=== PATIENT | female | born 1930 | race Caucasian/White ===

== ENCOUNTER 2016-09-16 16:42 | Inpatient (IN) | payer MEDICARE, OTHER ==
--- NOTE | ~2016-09-16 | CN ---
Consultation Report [facility] [address] [place]. [address] NAME: MARIELA HIGHTOWER : 34 STATUS : ADM IN [facility]#: [id number] AGE: 86 ADM/REG DATE : 09/16/16 MR#: [id number] REPORT SERV DATE: 09/17/16 DICTATED BY: FELIX SOLER DATE: 09/17/16 REPORT STATUS : Draft TRANSCRIBED BY: MODL DATE: 09/17/16 CONSULTATION DATE OF CONSULTATION: CHIEF COMPLAINT: Right shoulder pain. HISTORY OF PRESENT ILLNESS: This is an 86-year-old female, who is admitted to the hospitalist service with a mechanical fall and right upper extremity pain. She has a medical history of coronary artery disease, under the care of Dr. Gordon. She lives alone and is in reasonably good health, in her normal status. She has also had some dysuria recently. We are consulted to evaluate and treat the right upper extremity fracture. MEDICAL HISTORY: Significant for coronary artery disease with stent, hyperlipidemia. She is on oxygen. SURGICAL HISTORY: Gallbladder and stent. FAMILY HISTORY: Heart disease. SOCIAL HISTORY: Xibjf-pyqw-rqxd history. No alcohol or drug use. She lives alone. ALLERGIES: PENICILLIN. MEDICATIONS: Aspirin, atorvastatin, Plavix, Pepcid, Lasix, Prinivil. PHYSICAL EXAMINATION: VITAL SIGNS: She is afebrile. Vital signs are stable. GENERAL: She is in no acute distress. Pleasant, cooperative, alert and oriented x3. HEENT: Normocephalic, atraumatic. Extraocular movements are intact. No scleral icterus. NECK: Supple. Nontender. No JVD. Trach is midline. CHEST: Clear. CARDIOVASCULAR: Regular rate and rhythm. ABDOMEN: Soft, nontender. SKIN: Warm and dry. NEUROLOGICAL: There is no focal deficit. Cranial nerves 2 to 12 are intact. Hips, knees, and ankles have full range of motion without pain. Pulses are symmetric. No axillary or inguinal lymphadenopathy. Right upper extremity is in a sling. She has intact axillary sensory and motor function as well as radial median ulnar nerve function, distally 2+ radial pulse. LABS: White count 7.5, H and H of 11 and 36, platelets 99. Electrolytes, sodium 140, BUN and creatinine 26 and 1.5. Humerus x-ray demonstrates a nondisplaced surgical neck with good alignment and minimal mild comminution, 1-2 mm displacement. Consultation Report [facility] [address] [facility] [address] NAME: MARIELA HIGHTOWER : 32 STATUS : ADM IN [facility]#: [id number] AGE: 86 ADM/REG DATE : 09/16/16 MR#: [id number] REPORT SERV DATE: 09/17/16 DICTATED BY: FELIX SOLER DATE: 09/17/16 REPORT STATUS : Draft TRANSCRIBED BY: ALBERTO DATE: 09/17/16 ASSESSMENT: Nonoperative surgical neck fracture. PLAN: Nonoperative treatment, sling for four to six weeks. Elbow range of motion, pendulums only. We will check her back in two weeks to assess displacement in the office. Placement home versus home with home health PT versus rehab. CINDY/TYLERL Felix Soler M.D. / [id number] CC: MD Matias Rodriguez M.D.
--- NOTE | ~2016-09-16 | DS ---
Discharge Summary [facility] [id number] [place]. [address] NAME: MARIELA HIGHTOWER : 32 STATUS : DIS IN PAT#: [id number] AGE: 86 ADM/REG DATE : 09/16/16 MR#: [id number] REPORT SERV DATE: 09/21/16 DICTATED BY: Esha JIMÉNEZ DATE: 09/20/16 REPORT STATUS : Draft TRANSCRIBED BY: MODL DATE: 09/20/16 ADMISSION DATE: 09/16/2016 DISCHARGE DATE: 09/20/2016 CONSULTANTS: Chalino Soler M.D., Orthopedics and Franck Lucero PA-C, Pulmonology. DISCHARGE DIAGNOSES: 1. Right proximal humerus fracture. 2. Right pleural effusion. 3. Thrombocytopenia. 4. Acute kidney injury, on chronic kidney disease. 5. Hypertension. 6. Chronic atrial fibrillation, rate controlled. 7. Urinary tract infection. PROCEDURES: Right thoracentesis on 09/20/2016. IMAGING AND DIAGNOSTICS: 1. 09/17/2016: CT of the chest revealed [id number] right pleural effusion with compressive atelectasis involving the posterior and central right lobe, also additional atelectatic changes in the left lower lobe, right middle lobe, and lingula. No suspicious nodules or masses seen in the aerated portions of the lungs. Moderate upper lobe predominant emphysematous changes in the lungs with right apical fibrosis. Evidence of old granulomatous disease involving the right lung, mediastinal and hilar lymph nodes as well as the spleen. Mild retained secretions in the trachea and left mainstem bronchus. Stable bilateral low-density adrenal nodules compatible with adenomas. There is also a right renal cyst. Stable, recently mildly comminuted fracture of the right humeral head and neck. Atherosclerotic vascular disease as described with [id number] atherosclerotic calcification of the coronary arteries. 2. 09/16/2016: X-ray of the right humerus, acute proximal shaft and humeral head fracture, right side. 3. 09/16/2016: A portable chest x-ray revealed cardiomegaly, generation of a moderate- size pleural effusion, atelectatic changes in the upper medial right lung. Repeat chest x-ray post thoracentesis, persistent right basilar opacification, new left basilar opacification. LABORATORY STUDIES: 1. On 09/20/2016, discharge basic metabolic panel revealed sodium 141, potassium 4.4, chloride 107, CO2 of 26, BUN 18, creatinine 1.27, glucose 90, calcium 8.9, and LDH 123. 2. CBC on 09/20/2016 revealed a white count of 6.1, hemoglobin 11.1, hematocrit 33.6, and platelets 109,000. 3. Culture of the pleural fluid is in progress. Gram stain showed occasional wbc's, no microorganisms. 4. LDH of the thoracentesis fluid is 78, glucose 104, and protein 3.7. 5. On 09/17/2016, urine culture showed approximately 75,000 per mL of urine E coli Discharge Summary [place] [id number] [facility] [place]. [address] NAME: MARIELA HIGHTOWER : 32 STATUS : DIS IN PAT#: [id number] AGE: 86 ADM/REG DATE : 09/16/16 MR#: [id number] REPORT SERV DATE: 09/21/16 DICTATED BY: Esha JIMÉNEZ DATE: 09/20/16 REPORT STATUS : Draft TRANSCRIBED BY: ALBERTO DATE: 09/20/16 organism. HISTORY OF PRESENT ILLNESS: For complete history, please refer to H and P by Dr. Vince Mireles. Briefly, Ms. Hightower is a pleasant 86-year-old female who apparently tripped over a rug at home and was seen and given pain medicines and placed in a sling at the emergency room in [facility] a day before her admission to [facility]. Due to intractable pain, she presented to our emergency room. The Hospitalist Service was consulted for admission. HOSPITAL COURSE: Ms. Hightower was admitted to the orthopedic floor. Her admitting diagnosis was right humeral fracture with acute kidney injury and urinary tract infection. She was given IV fluids, DVT prophylaxis in the form of subcu heparin. CT of the chest was requested secondary to the chest x-ray showing the pleural effusion on the right side. She was placed on Rocephin 1 g IV q.24 hours. On 09/17/2016, she was seen in consultation by Dr. Chalino Soler who recommended no surgical intervention at this point. She was placed in a sling for six weeks and she is to follow up with Dr. Soler as an outpatient in two weeks. I initially saw the patient on 09/18/2016. She was in no acute distress. She did complain of some nausea with poor p.o. intake, however, stated she had not had a bowel movement in at least six days. She was provided with some laxatives and overnight was successful in having a bowel movement. On 09/19/2016, her urine culture came back showing E coli, and she was changed to oral Ceftin after the Rocephin was discontinued. She did complain of some dyspnea with exertion, however, no shortness of breath at rest, and with the results of the CT scan of the chest, Pulmonary was consulted. Her creatinine was improving, and on 09/19/2016, it was down to 1.23. Her MAC inhibitor was held and amlodipine was started on this date. She was seen in consultation by the Alpesh Lucero on 09/19/2016, and he planned for a diagnostic/therapeutic thoracentesis at the bedside on the morning of 09/20/2016. On the morning of 09/20/2016, she had a successful ultrasound-guided thoracentesis with 600 mL of yellow fluid evacuated from the right side. Her postprocedure chest x-ray is as above. When I saw the patient in the afternoon, she was feeling good. States she was breathing much better and hungry and wanted to eat. She denied any shortness of breath and was overall doing well. Her vital signs were stable with a blood pressure of 134/67, heart rate 76, respirations 24, and she is afebrile at 97.4. Her O2 saturation was 99% on 2 L nasal cannula. She does wear nocturnal oxygen at home. We did receive office notes from Dr. Ta, her former director of psychiatry, and atrial fibrillation is chronic for Ms. Hightower, and secondary to the increased risk of bleeding with her history of falls, Dr. Ta recommended dual-antiplatelet therapy with aspirin and Plavix for the patient. So on the afternoon of 09/20/2016, it was determined that it was safe for Ms. Hightower to transfer to [facility] for further rehabilitation. DISCHARGE INSTRUCTIONS: 1. Diet as tolerated. 2. Activity as tolerated with physical therapy and occupational therapy evaluation and treat at the facility. DISCHARGE MEDICATIONS: 1. Aspirin 81 mg p.o. daily. 2. Lipitor 40 mg p.o. daily at bedtime. Discharge Summary [address] [address] NAME: MARIELA HIGHTOWER : 32 STATUS : DIS IN PAT#: [id number] AGE: 86 ADM/REG DATE : 09/16/16 MR#: [id number] REPORT SERV DATE: 09/21/16 DICTATED BY: Esha JIMÉNEZ DATE: 09/20/16 REPORT STATUS : Draft TRANSCRIBED BY: MODL DATE: 09/20/16 3. Plavix 75 mg p.o. daily. 4. Colace 100 mg p.o. b.i.d. 5. Pepcid 20 mg p.o. daily at bedtime. 6. Artificial Tears one drop both eyes p.r.n. 7. Tylenol 650 mg p.o. q.4 hours p.r. p.r.n. 8. Bisacodyl 10 mg suppository p.r.n. 9. Hydrocodone 5/325 one p.o. q.4 hours p.r.n. 10.Zofran 4 mg p.o. every 4 hours. 11.MiraLax one packet p.o. daily p.r.n. constipation. 12.Senokot two tablets p.o. at bedtime p.r.n. 13.Lasix 20 mg p.o. daily. 14.Potassium chloride 20 mEq p.o. daily. 15.Ceftin 250 mg p.o. b.i.d., discontinue after last dose on 09/23/2016. 16.Amlodipine 2.5 mg p.o. daily. 17.DuoNebs q.4 hours while awake. 18.Albuterol nebulizers q.2 hours p.r.n. 19.Dulera two puffs b.i.d. 20.Spiriva one inhalation daily. OTHER DISCHARGE INSTRUCTIONS: Ms. Hightower will follow up with Dr. Ramirez, her inspector and clerk, next week for an office visit as well as a repeat chest x-ray. She will also follow up with her primary care provider after discharge from rehab, and she will follow up with Dr. Chalino Soler in two weeks. DICTATED BY: RYAN Steve-MARIAJOSE DICTATED FOR: Guerita Montague/ALBERTO Adele MartinezjacintodavidsonVAUGHNP- Esha Jiménez M.D. / [id number] CC: Guerita Montague M.D. Michael T Czarnecki, M.D. [facility] Discharge Summary [address] [address] NAME: MARIELA HIGHTOWER : 32 STATUS : DIS IN PAT#: [id number] AGE: 86 ADM/REG DATE : 09/16/16 MR#: [id number] REPORT SERV DATE: 09/21/16 DICTATED BY: Esha JIMÉNEZ DATE: 09/20/16 REPORT STATUS : Draft TRANSCRIBED BY: MODL DATE: 09/20/16 Guerita Valentine NP-C
--- NOTE | ~2016-09-16 | HP ---
History And Physical [facility] [address] [place]. [address] NAME: MARIELA HIGHTOWER : 32 STATUS : ADM IN [facility]#: [id number] AGE: 86 ADM/REG DATE : 09/16/16 MR#: [id number] REPORT SERV DATE: 09/16/16 DICTATED BY: NINOSKA RODRIGUEZ DATE: 09/16/16 REPORT STATUS : Draft TRANSCRIBED BY: MODValdez DATE: 09/16/16 DATE OF ADMISSION: 09/16/2016 CHIEF COMPLAINT: Intractable pain. HISTORY OF PRESENT ILLNESS: The patient is an 86-year-old very pleasant female with past medical history of coronary artery disease with stent placement last year, hyperlipidemia, previously seen Dr. Ta, now currently under the care of Dr. Gordon, who presents after having same-level fall. The patient reports that she tripped over her floor rug and has multiple bruising on right side extremity, particularly on her knees and legs, but subsequently had right humeral fracture, was seen at [facility] yesterday, placed in sling, and sent home with pain medications. The patient attempted conservative therapy; however, the patient reports that she is unable to tolerate pain despite medications, has had difficulty performing ADLs, has not been able to bathe. The patient is actually still in the same clothes as yesterday as she is unable to even change clothes, groom herself, and has not even cooked. The patient also reports that she has had notable burning with urination recently and is looking for help in this time of need. The patient prior to this is fairly functional, active, is able to perform her ADLs without much difficulty. Pain currently is worsened by range of motion and palpation. No current relieving medications techniques despite being on Lortab and Tylenol No. 3. The patient has not had any vomiting, but does have nausea, has had dysuria. No fevers. No diarrhea. No constipation. Symptoms are sharp, moderate severity, constant, nonradiating. Additional 10 point review of systems is negative except for that noted in the HPI. PAST MEDICAL HISTORY: Stent, coronary artery disease, and hyperlipidemia. The patient is unsure if she has COPD or FELA, but she does wear 2 L nocturnal oxygen. PAST SURGICAL HISTORY: Gallbladder and stent. SOCIAL HISTORY: Smoked 40 years, but quit 20 years ago. No alcohol or illicits. FAMILY HISTORY: Heart disease. ALLERGIES: PENICILLIN, WHICH CAUSED A RASH. HOME MEDICATIONS: Tylenol No. 3, Refresh, aspirin, atorvastatin, Plavix, Pepcid, Lasix, V[place], Prinivil, MiraLAX, and Klor-Con. PHYSICAL EXAMINATION: VITAL SIGNS: The patient's blood pressure 100/52, temperature 97.3, pulse 81, respirations 16, and O2 saturations 95% on room air. GENERAL: Mild discomfort, well-developed, well-nourished elderly. EYES: Scleral icterus. EOMI. ENT: Mildly dry mucous membranes. Tongue midline. RESPIRATORY: Clear to auscultation. No wheezes, but does have decreased lung sounds in the right lower lung. History And Physical [address] [address] NAME: MARIELA HIGHTOWER : 32 STATUS : ADM IN [facility]#: [id number] AGE: 86 ADM/REG DATE : 09/16/16 MR#: [id number] REPORT SERV DATE: 09/16/16 DICTATED BY: NINOSKA RODRIGUEZ DATE: 09/16/16 REPORT STATUS : Draft TRANSCRIBED BY: ALBERTO DATE: 09/16/16 CHEST: Equal chest expansion. CARDIOVASCULAR: Regular rate. No rubs. Capillary refill less than 2 seconds, 1:1 beat pulse ratio. No pedal edema. GASTROINTESTINAL: Soft, nontender, nondistended. Bowel sounds positive. GENITOURINARY: Deferred. MUSCULOSKELETAL: Right arm tenderness at shoulder, difficulty with range of motion, in sling. Does have bruising on right lower leg, but able to move without difficulty. SKIN: Warm and dry with bruising throughout body. HEMATOLOGIC: No bleeding. LYMPHATICS: No cervical or supraclavicular lymphadenopathy. NEURO: Alert and oriented. Sensation is still grossly intact. PSYCH: Appropriate mood and affect. LABORATORY DATA: CBC: WBC count 9.2, H and H 12.3 and 37.8, platelets of 137. Sodium 140; potassium 4.6; BUN 26; creatinine 1.64, previously 0.87 in 2012; glucose 122; calcium 9.5; chloride 105; bicarb 29. INR 1.2, PTT 30, pro time 14.6. BNP 279.6. ASSESSMENT AND PLAN: 1. Right humeral fracture. 2. Intractable pain. 3. Hyperlipidemia. 4. Coronary artery disease. 5. Nausea. 6. Questionable obstructive sleep apnea. 7. 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 8. Acute kidney injury. 9. Urinary tract infection. 10.Osteoporosis. PLAN: 1. Plan for right humeral fracture. The patient has been in sling, has tried conservative therapy at home, but is having difficulty performing ADLs, going to the bathroom, grooming self, cooking. Does have osteoporosis history. We will check calcium and vitamin D level, but will need PT and OT and adequate pain control. 2. Intractable pain, IV with p.o. medication bridge. 3. Hyperlipidemia, statin. 4. Coronary artery disease and questionable congestive heart failure history. The patient is not volume overloaded, but does have BNP of 279.6 and right-sided pleural effusion, which the patient reports she has had this in the past and has been drained. She does see Dr. 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 We will try to obtain records from Cardiology and Pulmonology. 5. Nausea p.r.n. 6. FELA and COPD, unclear history. Uses nocturnal oxygen. Will need to obtain records. No signs of acute decompensated COPD. 7. UNIQUE, IV fluids. Gentle with a history of coronary artery disease and mildly elevated BMP. We will also check CPK with recent fall. History And Physical [address] [address] NAME: MARIELA HIGHTOWER : 32 STATUS : ADM IN [facility]#: [id number] AGE: 86 ADM/REG DATE : 09/16/16 MR#: [id number] REPORT SERV DATE: 09/16/16 DICTATED BY: NINOSKA RODRIGUEZ DATE: 09/16/16 REPORT STATUS : Draft TRANSCRIBED BY: ALBERTO DATE: 09/16/16 8. UTI, Rocephin. Confirm with UA and culture. The patient is symptomatic with complaints of urinary tract infection. 9. Osteoporosis. Check vitamin D and calcium levels. Anticipate greater than two midnight inpatient stay. DERRELLN/ALBERTO Ninoska Rodriguez MD / [id number] CC: MD Matias Rodriguez M.D.
--- NOTE | ~2016-09-16 | CN ---
Consultation Report [facility] [address] [place]. [address] NAME: ANNALEE HIGHTOWER : 34 STATUS : ADM IN PAT#: [id number] AGE: 86 ADM/REG DATE : 09/16/16 MR#: [id number] REPORT SERV DATE: 09/19/16 DICTATED BY: FRANCK IZAGUIRRE DATE: 09/19/16 REPORT STATUS : Draft TRANSCRIBED BY: MODL DATE: 09/19/16 CONSULTATION DATE OF CONSULTATION: 09/19/2016 CHIEF COMPLAINT: Shortness of breath in a patient with recurrent right pleural effusion. HISTORY OF PRESENT ILLNESS: Mrs. Annalee Hightower is an 86-year-old white female with a past medical history significant for coronary artery disease, status post stenting, COPD, and recurrent right pleural effusion, who presents to [facility] Emergency Room after sustaining a fall and fracture to her right humerus. It should be noted that Mrs. Hightower was hospitalized as recently as July of this year at an outside facility where she was reportedly treated for volume overload as well as right pleural effusion. Mrs. Hightower is currently followed by Dr. Steven Ramirez in his outpatient pulmonary clinic for her pulmonary needs. She does have nocturnal hypoxemia and is compliant with supplemental oxygen at hour of sleep. She is on pulmonary medications of which she is compliant. Unfortunately, she cannot specifically name these medications today. She states that she quit smoking in the 1980s, prior to this time, she smoked approximately three packs a day for at least 20 years. Again, she has been assessed for obstructive sleep apnea in the past and has found benefit from supplemental oxygen rather than CPAP therapy. She describes her exercise tolerance prior to this recent fall as being fairly good. Again, Mrs. Hightower was hospitalized in 11/2015 when she was seen by the pulmonary service there. By her report, she was seen by her in shop service technician and underwent a diagnostic and therapeutic thoracentesis. Those studies and imaging are not available as to us today, but by her report, the effusion was benign in nature. More recently, she did have shortness of breath and signs and symptoms consistent with heart failure in 07/2016 when she presented to [facility]. During that time, she states that she may have had "fluid on her lungs again" that got better with diuretics. More recently, she full sustained a fall, which resulted in a proximal fracture of her right humerus. This ultimately led her presentation to [facility] Emergency Room. Upon arrival, she was found to have a systolic blood pressure of 100. She was afebrile with good oxygenation status. Initial blood work revealed a white blood cell count of 9200. Her BNP was 279.6. Her creatinine was 1.64. She did undergo imaging studies which suggested a right proximal humerus fracture. At this time, she did undergo a CT of the chest which demonstrated a moderate to large right-sided effusion. The patient was seen by the Orthopedics Service who decided to proceed with conservative treatment. The patient did improve in that regard, however, did have some persistent dyspnea. It should be noted that the patient did have a slightly elevated creatinine, and as such, diuretic therapy was held. As there is a question of a persistent/recurrent pleural effusion, pulmonary has been consulted for further assessment and treatment. Consultation Report [facility] [address] [place]. [address] NAME: ANNALEE HIGHTOWER : 34 STATUS : ADM IN [facility]#: [id number] AGE: 86 ADM/REG DATE : 09/16/16 MR#: [id number] REPORT SERV DATE: 09/19/16 DICTATED BY: FRANCK IZAGUIRRE DATE: 09/19/16 REPORT STATUS : Draft TRANSCRIBED BY: ALBERTO DATE: 09/19/16 Currently, Mrs. Hightower's main pulmonary complaint is shortness of breath. This is worse on exertion and relieved by rest. She is not wheezing. She denies any productive cough. She denies any direct trauma to the chest wall. She has had no episodes of hemoptysis. She denies any sharp pleuritic pain. The patient does have known coronary artery disease and has had stenting in the past. It should be noted that she is on Plavix. She currently denies any murmurs, angina, or palpitations. She denies any orthopnea. In regard to constitutional symptoms, she currently denies fever, chills, nausea, vomiting, chest pain, abdominal pain, or edema. PAST MEDICAL HISTORY: 1. Coronary artery disease, status post stenting, currently on Plavix. 2. Dyslipidemia. 3. COPD. 4. Nocturnal hypoxemia. PAST SURGICAL HISTORY: 1. Cholecystectomy. 2. Coronary artery stenting. FAMILY HISTORY: There is a family history of heart disease. She denies any known lung disease within the family. SOCIAL HISTORY: The patient is . She has one living child who is in fairly good health. She worked several occupations without significant industrial exposures. TOBACCO/ALCOHOL: As previously mentioned, the patient quit smoking in , prior to this time, she smoked approximately three packs a day for a period of least 20 years. She denies any recent alcohol or illicit drug use. REVIEW OF SYSTEMS: A complete review of systems was performed with the pertinent positives and negatives contained within the body of the HPI. PHYSICAL EXAMINATION: VITAL SIGNS: Blood pressure is 110/68, heart rate is 75, T-max is 98.4, respiratory rate is 19, and SpO2 is 94% on room air. GENERAL: Mrs. Annalee Hightower is an ill-appearing 86-year-old, white female, who is not currently exhibiting any signs of acute distress. SKIN: Skin with appropriate texture and turgor. There are multiple bruises noted on the anterior aspect of her bilateral knees. HEENT: Head, skull is normocephalic and atraumatic. Eyes, sclerae anicteric. Ears, auricles and tragus without pain to palpation. Nose, bilateral nasal patency. Throat, the Consultation Report [address] [place]. [address] NAME: ANNALEE HIGHTOWER : 34 STATUS : ADM IN [facility]#: [id number] AGE: 86 ADM/REG DATE : 09/16/16 MR#: [id number] REPORT SERV DATE: 09/19/16 DICTATED BY: FRANCK IZAGUIRRE DATE: 09/19/16 REPORT STATUS : Draft TRANSCRIBED BY: MODValdez DATE: 09/19/16 patient has poor dentition. NECK: Supple. Trachea midline. CARDIOVASCULAR: Regular rate and rhythm. No murmurs, rubs, gallops. THORAX/LUNGS: Diminished breath sounds in the lower right lung field. ABDOMEN: Abdomen is soft, nontender, nondistended. PERIPHERAL VASCULAR: No peripheral edema. MUSCULOSKELETAL: Right arm not assessed. No other evidence of erythema, deformity, or crepitus. NEUROLOGIC: Cranial nerves 2 through 12 grossly intact. PSYCHIATRIC: The patient demonstrates good judgment and insight. The patient is alert and oriented x3. ACCESSORY DATA: Reveals white blood cell count of 9600, hemoglobin and hematocrit are 11.7 and 35.8, and platelets are 100. Previous PT and INR are 1.2 and 14.6. Creatinine is 1.23. Leukocyte esterase and nitrites are positive. CT of the chest reveals a large right-sided pleural effusion. IMPRESSION: 1. Right proximal humerus fracture. 2. Recurrent right pleural effusion. 3. Chronic obstructive pulmonary disease. 4. Acute kidney injury, currently off diuretics. 5. Coronary artery disease, previously on Plavix. 6. Thrombocytopenia. 7. Urinary tract infection. PLAN: 1. In regard to the patient's recurrent right pleural effusion, by previous report this is likely benign in nature and currently followed by her established in shop service technician. Likely, this effusion is secondary to reaccumulation since she has been off her diuretics. There is a less likely chance that this is secondary to some trauma from her recent fall in the setting of thrombocytopenia. That being said, we will plan for a diagnostic and therapeutic thoracentesis at the bedside. We will follow her closely with a followup chest x-ray. It may be reasonable for her to transition home after this procedure with close outpatient followup with her in shop service technician and established bank analyst. 2. In regard to the patient's COPD, we will place her on her previous COPD medications. The aforementioned impression and plan has been discussed with Dr. Amato, who will follow further recommendations. We thank you for this consult and look forward to participating in the care. GBS/MODL Consultation Report [address] [address] NAME: ANNALEE HIGHTOWER : 34 STATUS : ADM IN [facility]#: [id number] AGE: 86 ADM/REG DATE : 09/16/16 MR#: [id number] REPORT SERV DATE: 09/19/16 DICTATED BY: FRANCK IZAGUIRRE DATE: 09/19/16 REPORT STATUS : Draft TRANSCRIBED BY: MODL DATE: 09/19/16 Franck Izaguirre PA-C / [id number] CC: Guerita Montague M.D.
--- NOTE | ~2016-09-16 | OP ---
Record Of Operation [facility] [address] [place]. [address] NAME: MARIELA HIGHTOWER : 34 STATUS : DIS IN PAT#: [id number] AGE: 86 ADM/REG DATE : 09/16/16 MR#: [id number] REPORT SERV DATE: 09/21/16 DICTATED BY: FRANCK IZAGUIRRE DATE: 09/21/16 REPORT STATUS : Draft TRANSCRIBED BY: ALBERTO DATE: 09/21/16 DATE OF PROCEDURE: 09/20/2016 TIME: 10 O'clock. PROCEDURE: Ultrasound guided right-sided thoracentesis INDICATION: Moderate right-sided pleural effusion. PROCEDURE VIDEO GAME SCRIPT WRITER: Alpesh Izaguirre PA-C. CONSENT: Consent was obtained from the patient prior to the procedure. Diagnostic and therapeutic indications for thoracentesis were discussed as well as risks including life- threatening bleeding, pneumothorax, and even the possible necessity of chest tube placement. Benefits and alternatives were explained at length. Prior to the procedure, imaging studies were reviewed with Dr. Amato, who agreed with the indication to proceed with thoracentesis. Dr. Amato was present for the procedure. PROCEDURE SUMMARY: A time out was performed verifying correct patient, procedure, site, and positioning. The patient's right chest was prepped and draped in a sterile manner using chlorhexidine scrub after the appropriate level was percussed and confirmed by ultrasound. U/S images were obtained and placed within the chart. 2% lidocaine with epinephrine was then used to anesthetize the region. A finder needle was then used to aspirate yellow straw- colored pleural fluid. A 10-blade scalpel was then used to make a small incision. The thoracentesis catheter was then threaded into the pleural space without difficulty. The patient had 600 mL of straw-colored fluid removed. No immediate complications were noted during the procedure. A post-procedure chest x-ray is pending at the time of this dictation. The fluid will be sent for several studies. ESTIMATED BLOOD LOSS: Minimal. GBS/MODL Franck Izaguirre PA-C / [id number] CC: Guerita Montague M.D.
[~2016-09-16 16:42] MED LIST: DITRO5 PO; GLUCCHONDR PO; LORTAB 5 PO; MOBIC15 MG PO; NORCO1 TA1 PO; NORV5 PO; OCUVITE PO; PRILO PO; PT DOES NOT KNOW; STERAPRED DS10 MG; T PO; TUMSROLL PO; VITAMIN D31000 UNIT PO; WELCHOL 625 MG625 MG PO
[2016-09-16] MEDS ORDERED: T3 PO (16:51)
[2016-09-16] MEDS ORDERED: PEP20 PO (16:51)
[2016-09-16] MEDS ORDERED: PLAVIX PO (16:52)
[2016-09-16] MEDS ORDERED: LIPITOR40 PO (16:52)
[2016-09-16 16:53] LABS: BASOPHILS 0.5 %; BASOPHILS ABSOLUTE 0.05 10/3/uL (0.0-0.16); EOSINOPHILS 1.5 %; EOSINOPHILS ABSOLUTE 0.14 10/3/uL (0.0-0.53); ER CBC TAT 0 Hrs 08 Mins; HEMATOCRIT 37.8 % (36.0-48.0); HEMOGLOBIN 12.3 g/dL (12.0-16.0); IMMATURE GRANULOCYTES 0.2 %; IMMATURE GRANULOCYTES ABSOLUTE 0.02 10/3/uL (0.0-0.11); LYMPHOCYTES 7.7 %; MANUAL DIFF NO %; MEAN CORPUS HGB CONC 32.5 g/dL (32.0-36.0); MEAN CORPUSCULAR HEMOGLOB 28.7 pg (26.0-34.0); MEAN CORPUSCULAR VOLUME 88.3 fL (80-100); MEAN PLATELET VOLUME 12.9 fL (9.2-13.0); MONOCYTES 14.3 %; MONOCYTES ABSOLUTE 1.31 10/3/uL (0.21-1.20); NEUTROPHILS 75.8 %; NEUTROPHILS ABSOLUTE 6.93 10/3/uL (2.02-8.40); PLATELET COUNT 137 10/3/uL (150-400); RBC DISTRIBUTION WIDTH 14.6 % (12.0-16.0); RED CELL COUNT 4.28 10/6/uL (4.0-5.6); WHITE BLOOD CELLS 9.2 10/3/uL (4.5-10.5)
[2016-09-16] MEDS ORDERED: L20 PO (16:53)
[2016-09-16 17:03] LABS: INTERNATIONAL NORMAL RATI 1.2 UNITS (-); PROTIME (NOT ORD) 14.6 SEC (12.0-14.5)
[2016-09-16 17:05] LABS: BUN (BLOOD UREA NITROGEN) 26 MG/DL (6-23); CALCIUM, SERUM 9.5 MG/DL (8.5-10.4); CHLORIDE, SERUM 105 MMOL/L (96-112); CO2 (CARBON DIOXIDE) 29 MMOL/L (24-34); SODIUM, SERUM 140 MMOL/L (135-148)
[2016-09-16 17:06] LABS: CREATININE 1.64 MG/DL (0.55-1.02); GFR AFRICAN AMERICAN 33 ML/MIN (>=60); GFR NON AFRICAN AMERICAN 28 ML/MIN (>=60); GLUCOSE, SERUM 122 MG/DL (60-99); POTASSIUM, SERUM 4.6 MMOL/L (3.5-5.3)
[2016-09-16] MEDS ORDERED: PRIN2.5 PO ×2 (17:20→17:22)
[2016-09-16] MEDS ORDERED: ASAB PO (17:21)
[2016-09-16] MEDS ORDERED: KLOR-CON M2020 MEQ PO (17:21)
[2016-09-16] MEDS ORDERED: NORCO1 TA1 PO (17:21)
[2016-09-16] MEDS ORDERED: MIRALAX POWDER1 PKT PO (17:24)
[2016-09-16] MEDS ORDERED: REFRESH OPH (17:25)
[2016-09-17 03:04] LABS: ASCORBIC ACID (UR NOT ORDER) NEG (NEG); BILIRUBIN, URINE NEGATIVE (NEG); ER URINALYSIS TAT 0 Hrs 00 Mins; KETONE, URINE NEGATIVE (NEG); LEUKOCYTE ESTERASE(NOT OR LARGE (NEG); NITRITE (URINE) POS (NEG); WBC (NOT ORDERED) (RFLEX) 106 (0-5)
[2016-09-17 04:14] LABS: BASOPHILS 0.8 %; BASOPHILS ABSOLUTE 0.06 10/3/uL (0.0-0.16); EOSINOPHILS 5.3 %; HEMATOCRIT 36.2 % (36.0-48.0); HEMOGLOBIN 11.8 g/dL (12.0-16.0); IMMATURE GRANULOCYTES 0.1 %; IMMATURE GRANULOCYTES ABSOLUTE 0.01 10/3/uL (0.0-0.11); MEAN CORPUS HGB CONC 32.6 g/dL (32.0-36.0); MEAN CORPUSCULAR HEMOGLOB 28.8 pg (26.0-34.0); MEAN CORPUSCULAR VOLUME 88.3 fL (80-100); MEAN PLATELET VOLUME 12.9 fL (9.2-13.0); MONOCYTES 13.7 %; MONOCYTES ABSOLUTE 1.03 10/3/uL (0.21-1.20); NEUTROPHILS 72.1 %; NEUTROPHILS ABSOLUTE 5.44 10/3/uL (2.02-8.40); PLATELET COUNT 99 10/3/uL (150-400); RBC DISTRIBUTION WIDTH 14.5 % (12.0-16.0); WHITE BLOOD CELLS 7.5 10/3/uL (4.5-10.5)
[2016-09-17 04:15] LABS: MANUAL DIFF NO %
[2016-09-17 04:31] LABS: BUN (BLOOD UREA NITROGEN) 26 MG/DL (6-23); CHLORIDE, SERUM 107 MMOL/L (96-112); CO2 (CARBON DIOXIDE) 26 MMOL/L (24-34); CPK 19 U/L (0-200); CREATININE 1.59 MG/DL (0.55-1.02); GFR AFRICAN AMERICAN 34 ML/MIN (>=60); GFR NON AFRICAN AMERICAN 30 ML/MIN (>=60); GLUCOSE, SERUM 114 MG/DL (60-99); POTASSIUM, SERUM 4.5 MMOL/L (3.5-5.3); SODIUM, SERUM 140 MMOL/L (135-148)
[2016-09-18 04:31] LABS: BUN (BLOOD UREA NITROGEN) 21 MG/DL (6-23); CALCIUM, SERUM 8.7 MG/DL (8.5-10.4); CHLORIDE, SERUM 108 MMOL/L (96-112); CO2 (CARBON DIOXIDE) 24 MMOL/L (24-34); CREATININE 1.31 MG/DL (0.55-1.02); GFR AFRICAN AMERICAN 43 ML/MIN (>=60); GFR NON AFRICAN AMERICAN 37 ML/MIN (>=60); GLUCOSE, SERUM 108 MG/DL (60-99); POTASSIUM, SERUM 4.1 MMOL/L (3.5-5.3); SODIUM, SERUM 140 MMOL/L (135-148)
[2016-09-18 12:09] LABS: BASOPHILS 0.9 %; BASOPHILS ABSOLUTE 0.07 10/3/uL (0.0-0.16); EOSINOPHILS 3.4 %; EOSINOPHILS ABSOLUTE 0.25 10/3/uL (0.0-0.53); HEMATOCRIT 35.4 % (36.0-48.0); HEMOGLOBIN 11.4 g/dL (12.0-16.0); IMMATURE GRANULOCYTES 0.3 %; IMMATURE GRANULOCYTES ABSOLUTE 0.02 10/3/uL (0.0-0.11); LYMPHOCYTES 9.6 %; LYMPHOCYTES ABSOLUTE 0.71 10/3/uL (0.67-4.30); MEAN CORPUS HGB CONC 32.2 g/dL (32.0-36.0); MEAN CORPUSCULAR HEMOGLOB 28.1 pg (26.0-34.0); MEAN CORPUSCULAR VOLUME 87.2 fL (80-100); MEAN PLATELET VOLUME 12.8 fL (9.2-13.0); MONOCYTES ABSOLUTE 0.74 10/3/uL (0.21-1.20); NEUTROPHILS 75.8 %; NEUTROPHILS ABSOLUTE 5.63 10/3/uL (2.02-8.40); PLATELET COUNT 99 10/3/uL (150-400); RBC DISTRIBUTION WIDTH 14.6 % (12.0-16.0); RED CELL COUNT 4.06 10/6/uL (4.0-5.6); WHITE BLOOD CELLS 7.4 10/3/uL (4.5-10.5)
[2016-09-18 12:13] LABS: MANUAL DIFF NO %
[2016-09-19 04:35] LABS: BASOPHILS 0.5 %; BASOPHILS ABSOLUTE 0.05 10/3/uL (0.0-0.16); EOSINOPHILS 2.9 %; EOSINOPHILS ABSOLUTE 0.28 10/3/uL (0.0-0.53); HEMATOCRIT 35.8 % (36.0-48.0); HEMOGLOBIN 11.7 g/dL (12.0-16.0); IMMATURE GRANULOCYTES 0.2 %; IMMATURE GRANULOCYTES ABSOLUTE 0.02 10/3/uL (0.0-0.11); LYMPHOCYTES 4.1 %; LYMPHOCYTES ABSOLUTE 0.39 10/3/uL (0.67-4.30); MEAN CORPUS HGB CONC 32.7 g/dL (32.0-36.0); MEAN CORPUSCULAR HEMOGLOB 28.5 pg (26.0-34.0); MEAN CORPUSCULAR VOLUME 87.3 fL (80-100); MEAN PLATELET VOLUME 12.7 fL (9.2-13.0); MONOCYTES 10.3 %; MONOCYTES ABSOLUTE 0.99 10/3/uL (0.21-1.20); NEUTROPHILS ABSOLUTE 7.86 10/3/uL (2.02-8.40); PLATELET COUNT 100 10/3/uL (150-400); RBC DISTRIBUTION WIDTH 14.3 % (12.0-16.0); WHITE BLOOD CELLS 9.6 10/3/uL (4.5-10.5)
[2016-09-19 04:36] LABS: MANUAL DIFF NO %
[2016-09-19 04:47] LABS: CALCIUM, SERUM 8.8 MG/DL (8.5-10.4); CHLORIDE, SERUM 105 MMOL/L (96-112); CO2 (CARBON DIOXIDE) 27 MMOL/L (24-34); CREATININE 1.23 MG/DL (0.55-1.02); GFR AFRICAN AMERICAN 47 ML/MIN (>=60); GFR NON AFRICAN AMERICAN 40 ML/MIN (>=60); GLUCOSE, SERUM 123 MG/DL (60-99); POTASSIUM, SERUM 4.2 MMOL/L (3.5-5.3); SODIUM, SERUM 139 MMOL/L (135-148)
[2016-09-19 04:49] LABS: BUN (BLOOD UREA NITROGEN) 15 MG/DL (6-23)
[2016-09-20 05:53] LABS: BASOPHILS 0.7 %; BASOPHILS ABSOLUTE 0.04 10/3/uL (0.0-0.16); EOSINOPHILS 6.3 %; EOSINOPHILS ABSOLUTE 0.38 10/3/uL (0.0-0.53); HEMATOCRIT 33.6 % (36.0-48.0); HEMOGLOBIN 11.1 g/dL (12.0-16.0); IMMATURE GRANULOCYTES 0.2 %; IMMATURE GRANULOCYTES ABSOLUTE 0.01 10/3/uL (0.0-0.11); LYMPHOCYTES 12.6 %; LYMPHOCYTES ABSOLUTE 0.76 10/3/uL (0.67-4.30); MEAN CORPUSCULAR HEMOGLOB 28.8 pg (26.0-34.0); MEAN CORPUSCULAR VOLUME 87.3 fL (80-100); MEAN PLATELET VOLUME 13.1 fL (9.2-13.0); MONOCYTES 15.9 %; MONOCYTES ABSOLUTE 0.96 10/3/uL (0.21-1.20); NEUTROPHILS 64.3 %; PLATELET COUNT 109 10/3/uL (150-400); RBC DISTRIBUTION WIDTH 14.6 % (12.0-16.0); RED CELL COUNT 3.85 10/6/uL (4.0-5.6); WHITE BLOOD CELLS 6.1 10/3/uL (4.5-10.5)
[2016-09-20 06:00] LABS: INTERNATIONAL NORMAL RATI 1.1 UNITS (-); MANUAL DIFF NO %; PROTIME (NOT ORD) 14.5 SEC (12.0-14.5)
[2016-09-20 12:06] LABS: BD FL SOURCE (NOT ORD) PLEURAL
[2016-09-20 12:37] LABS: GLUCOSE BODY FL (NOT ORD) 104 MG/DL; LDH BODY FLUID (NOT ORD) 78 U/L; PROTEIN BODY FLUID 3.7 G/DL
[2016-09-20 13:29] LABS: BD FL LYMPH (NOT ORD) 74 %; BF BASO (NOT OF) 0 %; BF LARGE MONONUCLEAR 18 %; BODY FLUID EOS (NOT ORD) 0 %; BODY FLUID SEG (NOT ORD) 8 %
[2016-09-20 13:38] LABS: BF TOTAL CELL CT (NOT ORD 725 /MM3; BODY FLUID RBC (NOT ORD) 500 /MM3
[2016-09-20 15:33] LABS: BUN (BLOOD UREA NITROGEN) 18 MG/DL (6-23); CALCIUM, SERUM 8.9 MG/DL (8.5-10.4); CHLORIDE, SERUM 107 MMOL/L (96-112); CO2 (CARBON DIOXIDE) 26 MMOL/L (24-34); CREATININE 1.27 MG/DL (0.55-1.02); GFR AFRICAN AMERICAN 45 ML/MIN (>=60); GFR NON AFRICAN AMERICAN 39 ML/MIN (>=60); POTASSIUM, SERUM 4.4 MMOL/L (3.5-5.3); SODIUM, SERUM 141 MMOL/L (135-148)
[2016-09-20 15:34] LABS: GLUCOSE, SERUM 90 MG/DL (60-99)
[2016-09-20 17:36] LABS: BD FL SOURCE (NOT ORD) THORACENTESIS
== END 2016-09-20 19:01 | DRG 543 ==
LOC: ER 16:42 → 3SO 17:40
PROVIDERS: Nurse Practitioner; Physician Assistant; Physician Assistant Medical; Student in an Organized Health Care Education/Training Program
DX: M80.021A Age-related osteoporosis with current pathological fracture, right humerus, initial encounter for fracture (principal); N17.9 Acute kidney failure, unspecified; J90 Pleural effusion, not elsewhere classified; N39.0 Urinary tract infection, site not specified; J44.9 Chronic obstructive pulmonary disease, unspecified; E78.5 Hyperlipidemia, unspecified; I25.10 Atherosclerotic heart disease of native coronary artery without angina pectoris; I12.9 Hypertensive chronic kidney disease with stage 1 through stage 4 chronic kidney disease, or unspecified chronic kidney disease; N18.9 Chronic kidney disease, unspecified
CPT/HCPCS: 71010; 71250; 73060-RT; 80048; 81001; 82550; 82945; 83615; 83735; 83880; 83986; 84157; 85025; 85306; 85610; 85730; 87015; 87070; 87077; 87086; 87116; 87186; 87205; 88112; 88305; 89051; 93005; 97161-GP; 97165-GO; 97535-GO; 99284; A9270-GY; G8978-CI-GP; G8979-CI-GP; G8980-CI-GP; G8987-CK-GO; G8988-CJ-GO; J2405